=== PATIENT | male | born 1965 | race Caucasian/White ===

== ENCOUNTER → 2023-08-17 | Outpatient (CLI) | payer OTHER | LOC: M PLARAD 10:36 | PROVIDERS: ATTEND Physician Assistant Medical | DX: R42 Dizziness and giddiness (principal) ==

== ENCOUNTER → 2025-02-24 | Outpatient (CLI) | payer OTHER | LOC: M SLEEP 20:00 | PROVIDERS: ATTEND Nurse Practitioner Family | DX: G47.33 Obstructive sleep apnea (adult) (pediatric) (principal) ==